=== PATIENT | female | born 1985 | race Caucasian/White ===

== ENCOUNTER 2019-03-04 20:19 | Emergency (ER) | payer OTHER ==
[~2019-03-04] VITALS: Ht 165.1 cm; Wt 74.8 kg
--- NOTE | 2019-03-04 20:55 | NUR ---
PT BIBFAMILY C/O ABD PAIN WITH N/V X 2 HOURS. PATIENT ACTIVELY VOMITING IN TRIAGE, STATES SHE THINKS ITS HER GALLBLADDER. PT AOX4. PT ON MONITOR IN BED 3. WILL CONTINUE TO MONITOR.
--- NOTE | 2019-03-04 21:02 | NUR ---
PATIENT PLACED IN A GOWN, URINE SPECIMEN OBTAINED. PATIENT PLACED ON THE ELECTRICIAN SOUND.
[2019-03-04 21:21] LABS: BASOPHILS % (AUTO) 0.2 % (0.0-2.0); EOSINOPHILS % (AUTO) 0.2 % (0.0-6.0); HEMATOCRIT 42 % (33-45); HEMOGLOBIN 14.1 g/dL (11.5-14.8); LYMPHOCYTES # (AUTO) 1.3 /CMM (0.8-4.8); LYMPHOCYTES % (AUTO) 9.2 % (20.0-44.0); MEAN CORPUSCULAR HGB CONC 34 g/dl (31.0-36.0); MEAN CORPUSCULAR VOLUME 88 fL (82-100); MONOCYTES # (AUTO) 0.9 /CMM (0.1-1.30); MONOCYTES % (AUTO) 6.2 % (2.0-12.0); NEUTROPHILS # (AUTO) 11.9 /CMM (1.8-8.9); NEUTROPHILS % (AUTO) 84.2 % (43.0-81.0); PLATELET COUNT (AUTO) 300 /CMM (150-450); RED BLOOD CELL COUNT(AUTO) 4.79 MIL/uL (4.0-5.2); WHITE BLOOD COUNT (AUTO) 14.1 K/uL (4.3-11.0)
[2019-03-04] MEDS ORDERED: ONDANSETRON HCL/PF 4 MG/2 ML VIAL ONE (21:22)
[2019-03-04] MEDS ORDERED: ONDANSETRON HCL/PF 4 MG/2 ML VIAL IV ONE (21:30)
[2019-03-04] MEDS ORDERED: IV NS 0.9% 1,000 ML BAG IV ONE (21:30)
[2019-03-04 21:31] LABS: CREATININE 0.8 mg/dL (0.6-1.3); POTASSIUM 3.2 mmol/L (3.5-5.1)
[2019-03-04 21:37] LABS: BILIRUBIN,DIRECT 0.3 mg/dL (0.0-0.2); BILIRUBIN,TOTAL 0.7 mg/dL (0.2-1.0); TOTAL PROTEIN, SERUM 7.7 g/dL (6.4-8.2)
[2019-03-04] MEDS ORDERED: MORPHINE SULFATE INJ 2 MG/ML DISP.SYRIN IV ONE (22:30)
[2019-03-04] MEDS ORDERED: MORPHINE SULFATE INJ 4 MG/ML DISP.SYRIN ONE (22:50)
[2019-03-05] MEDS ORDERED: CEFOTETAN DISODIUM 1 G in IV D5W 50 ML IV SCH ×2
--- NOTE | 2019-03-05 00:02 | NUR ---
Patient is resting comfortably in bed with eyes closed. Easily aroused. FAMILY AT BEDSIDE
[2019-03-05 00:04] VITALS: BP 137/82
[2019-03-05] MEDS ORDERED: IV NS 0.9% 1,000 ML IV PRN (00:12)
[2019-03-05] MEDS ORDERED: IV NS 0.9% 1,000 ML BAG IV ONE (00:30)
[2019-03-05] MEDS ORDERED: MORPHINE SULFATE INJ 2 MG/ML DISP.SYRIN IV PRN (00:30)
[2019-03-05] MEDS ORDERED: ONDANSETRON HCL/PF 4 MG/2 ML VIAL IVP PRN (00:30)
--- NOTE | 2019-03-05 00:42 | NUR ---
PT ASSIGNED TO 322-1
[2019-03-05] MEDS ORDERED: CEFOXITIN 1 G VIAL ONE (00:55)
[2019-03-05] MEDS ORDERED: CEFOXITIN 1 G in IV D5W 50 ML IV SCH (01:00)
--- NOTE | 2019-03-05 01:17 | NUR ---
REPORT GIVEN TO VAMSI MARADIAGA FOR ABIEL
--- NOTE | 2019-03-05 01:51 | NUR ---
Patient does not wish to proceed with medical care recommended by Dr. HOPKINS. Patient given information related to possible complications, up to and including , which could occur as a result of leaving the hospital at this time. Patient verbalizes understanding of risks involved due to leaving against medical advice. Patient has signed AMA form.
[2019-03-05] MEDS ORDERED: PIPERACILLIN /TAZOBACTAM 4.5 G in IV D5W 50 ML IV SCH (06:00)
[2019-03-05] MEDS ORDERED: PANTOPRAZOLE 40 MG VIAL IV SCH (09:00)
== END 2019-03-05 02:09 | disposition left against medical advice (07) ==
LOC: ER 20:21 → UNDOADMIN 03-05 00:53 → MED 03-05 00:53
DX: K81.0 Acute cholecystitis (principal); R74.0 Nonspecific elevation of levels of transaminase and lactic acid dehydrogenase [LDH]; R11.2 Nausea with vomiting, unspecified; Z98.51 Tubal ligation status
CPT/HCPCS: 36415; 76705; 80048; 80076; 83690; 85025; 96361; 96365; 96375; 99285; J0694 ×2; J2270; J2405; J2543; J7030 ×2; J7060 ×4